=== PATIENT | male | born 2000 | race Caucasian/White ===

== ENCOUNTER 2018-09-01 22:22 | Emergency (ER) | payer BC | END 2018-09-01 23:16 | disposition home or self-care (01) | LOC: ERS 22:22 | DX: K03.81 Cracked tooth (principal); K02.9 Dental caries, unspecified; F41.9 Anxiety disorder, unspecified; F32.9 Major depressive disorder, single episode, unspecified; Z79.899 Other long term (current) drug therapy; Z71.6 Tobacco abuse counseling | CPT/HCPCS: 99406 ==

== ENCOUNTER 2018-09-30 02:20 | Emergency (ER) | payer BC ==
[2018-09-30] MEDS ORDERED: Bupivacaine 0.5% 10 ML VIAL ONE (02:30)
== END 2018-09-30 02:48 | disposition home or self-care (01) ==
LOC: ERS 02:20
DX: K04.7 Periapical abscess without sinus (principal); F41.9 Anxiety disorder, unspecified; F32.9 Major depressive disorder, single episode, unspecified; F17.210 Nicotine dependence, cigarettes, uncomplicated
CPT/HCPCS: 64400; J3490

== ENCOUNTER 2018-10-02 13:21 | Inpatient (IN) | payer BC ==
[~2018-10-02 13:21] MED LIST: ISOVUE-370 76%-LOCM 1 ML ONE
[2018-10-02] MEDS ORDERED: Acetaminophen 650 MG/20.3 ML UDCUP ONE (13:55)
[2018-10-02] MEDS ORDERED: Dexamethasone 4 mg/ml Vial ONE ×2 (13:56→19:55)
[2018-10-02] MEDS ORDERED: Ondansetron PF 4 MG/2 ML Vial ONE (14:26)
[2018-10-02] MEDS ORDERED: Morphine 4 MG/ML VIAL ONE (14:32)
[2018-10-02 14:43] LABS: Hemoglobin 15.3 g/dL (14.0-18.0); Mean Corpuscular HGB CONC 34.2 g/dL (32.0-36.0); Mean Corpuscular Hemoglobin 31.3 pg (25.0-35.0); Mean Corpuscular Volume 91.5 fL (78.0-98.0); Mean Platelet Volume 5.9 fL (7.4-10.4); Platelet Count 293 thou/uL (130-400); Red Blood Cell (RBC) Count 4.89 mill/uL (4.00-5.20); White Blood Cell (WBC) Count 20.1 thou/uL (4.8-10.8)
[2018-10-02 14:57] LABS: Band 4 % (5-11); Lymphocytes 11 % (28-48); MDiff Complete? YES; Monocytes 6 % (0-4); Neutrophil 79 % (31-61); Platelet Morphology Comment Appears Adequate; RBC Morphology Normal
[2018-10-02 15:08] LABS: ALT (SGPT) 13 U/L (8-55); AST (SGOT) 19 U/L (5-34); Albumin 4.5 g/dL (3.5-5.0); Alkaline Phosphatase 76 U/L (Less than 750); Anion Gap 17 mmol/L (10-20); BUN (Urea Nitrogen) 27 mg/dL (8.9-20.6); Bilirubin, Total 0.9 mg/dL (0.2-1.2); Calc. Creatinine Clearance 0 mL/min (70-130); Calcium 9.8 mg/dL (7.8-10.44); Carbon Dioxide 24 mmol/L (22-29); Chloride 98 mmol/L (98-107); Estimated GFR-MDRD 74; Globulin 3.2 g/dL (2.4-3.5); Glucose 104 mg/dL (70-105); Potassium 4.3 mmol/L (3.5-5.1); Protein, Total 7.7 g/dL (6.0-8.3); Sodium 135 mmol/L (136-145)
[2018-10-02] MEDS ORDERED: HYDROmorphone 0.5 MG/0.5 ML SYRINGE ONE ×2 (15:22→19:07)
--- NOTE | 2018-10-02 15:35 | CT ---
CT NECK SOFT TISSUES WITH CONTRAST: Date: 10/02/18 HISTORY: 18-year-old male with sore throat, dental pain, and fever. FINDINGS: There is a complex shaped abscess in the right submandibular space extending anterior to posterior, a nd extending from midline to laterally. There are multiple different loculated components. The main c omponent located inferiorly is oriented along the anteroposterior dimension, and contains a large zaria unt of gas, in addition to the fluid. There is an extension process that travels laterally and superi kai to abut the lingual side of the right mandibular body and angle. Because of the severe edema ass ociated with this, the tissue planes are blurred, and it is difficult to separate the mylohyoid muscl e from the other muscles, that would help in distinguishing the sublingual space from the submandibul ar space. The right lateral component of the abscess abuts the lingual side of the mandible, and cont ains more fluid than gas. There are multiple enlarged right submandibular Level IB reactive lymph nod es. There is diffuse edema throughout the submandibular space and questionably also in the sublingual space, as well as the subcutaneous tissues around the mandible. This edema extends inferiorly to inv olve the anterior cervical spine at midline and bilaterally. The right parapharyngeal space has edema . The mucosal edema mildly effaces the right oropharyngeal airway and the right supraglottic larynx. The glottic larynx and subglottic larynx are widely patent and clear. Lung apices are clear. No defin ite osseous cortical defect is identified involving the mandible. Mucosal edema effaces the right pir iform sinus and preepiglottic space. No retropharyngeal abscess. IMPRESSION: 1. Large, complex-shaped right submandibular abscess, with extensive edema extending into adjacent s paces. 2. 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 3. Otolaryngology consultation is strongly recommended. CODE T. POS: NEDA
[2018-10-02] MEDS ORDERED: Ampicillin/Sulbactam 3 GM in Sodium Chloride 0.9% 100 ML IVPB SCH (16:00)
[2018-10-02] MEDS ORDERED: Morphine 2 MG/ML SYRINGE SLOW IVP PRN (19:56)
[2018-10-02] MEDS ORDERED: Senokot S 8.6-50 MG TAB PO PRN (19:56)
[2018-10-02] MEDS ORDERED: Ondansetron PF 4 MG/2 ML Vial IVP PRN (19:56)
[2018-10-02] MEDS ORDERED: Guaifenesin DM 100-10/5 ML UDCUP PO PRN (19:56)
[2018-10-02] MEDS ORDERED: Acetaminophen 325 MG TAB PO PRN (19:56)
--- NOTE | 2018-10-02 20:34 | HP ---
REASON FOR ADMISSION: Submandibular abscess, multiple caries. HISTORY OF PRESENTING ILLNESS: The patient gives history of having pain and swelling on his right lower half of his face from last three days. This got worse from last evening. He has not been able to open his mouth nor eat. The pain is throbbing in nature, 10/10 in intensity. The patient in fact had come to the emergency room 2 days back and was given clindamycin and Motrin. He was asked to go and see a dentist on the outpatient basis. The patient did not have a financial resources to go see a dentist and finally made it to the emergency room again. The patient had mild fever as well. The patient states he has multiple caries and has not been able to see a dentist for the same. Smokes half pack a day. He also uses marijuana. He denies other substance use. PAST MEDICAL/SURGICAL HISTORY: Anxiety disorder, multiple caries. No prior surgery. CURRENT MEDICATIONS: 1. Clindamycin 450 mg three times daily. 2. Fluoxetine 40 mg daily. 3. Motrin 800 mg q.8 hourly p.r.n. for pain. ALLERGIES: NO KNOWN DRUG ALLERGIES. PERSONAL HISTORY: Smokes half a pack a day. Uses marijuana. Does not abuse other drugs. Drinks on social occasion. FAMILY HISTORY: Mother is in the room. She has history of medullary sponge kidney. Father has coronary artery disease with 3 stents placed. He also has COPD. CODE STATUS: Full. Power of emergency planning and response manager is his mom. REVIEW OF SYSTEMS: CONSTITUTIONAL: Negative for weight loss or gain, ability to conduct usual activities. SKIN: Negative for rash, itching. EYES: Negative for double vision, pain. ENT/MOUTH: Negative for nose bleeding, neck stiffness, pain, tenderness. CARDIOVASCULAR: Negative for palpitations, dyspnea on exertion, orthopnea. RESPIRATORY: Negative for shortness of breath, wheezing, cough, hemoptysis, fever or night sweats. GASTROINTESTINAL: Negative for poor appetite, abdominal pain, heartburn, nausea , vomiting, constipation, or diarrhea. GENITOURINARY: Negative for urgency, frequency, dysuria, nocturia. MUSCULOSKELETAL: Negative for pain, swelling. NEUROLOGIC/PSYCHIATRIC: Negative for anxiety, depression. ALLERGY/IMMUNOLOGIC: Negative for skin rash, bleeding tendency. PHYSICAL EXAMINATION: GENERAL: The patient is a 18-year-old male, who is currently not in any acute distress. VITAL SIGNS: Blood pressure 126/72, pulse 74 per minute, respiratory rate 18 per minute, temperature 100.8 degrees Fahrenheit, and saturating 100% on room air. NECK: Supple. No elevated JVD. EYES: Extraocular muscles intact. Pupils reacting to light. Oral cavity, the patient has edema of the gum with tenderness on the right lower molars. He also has multiple caries on both sides. He has also swelling of his right submandibular area and the lateral neck on the right side. No elevated JVD. CARDIOVASCULAR: S1 and S2 heard. Regular rhythm. RESPIRATORY SYSTEM: Air entry 1+ bilateral. Scattered rhonchi plus no rales or wheezes. ABDOMEN: Soft. Bowel sounds heard. No tenderness, rigidity, or guarding. EXTREMITIES: No peripheral edema or calf tenderness. VASCULAR SYSTEM: Peripheral pulses 2+ bilateral. No ischemic ulcerations or gangrene. CENTRAL NERVOUS SYSTEM: No gross focal deficits noted. The patient is alert, awake, and oriented well. PSYCHIATRIC SYSTEM: The patient's mood is euthymic. No hallucinations or delusions. LABORATORY DATA: CT of soft tissue neck done shows findings of large complex shaped right submandibular abscess with extensive edema extending into adjacent bases. 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 Electrolytes stable. BUN 27, creatinine 1.25, and serum glucose 104. Liver enzymes within normal limits. Albumin is 4.5. White count of 20, hemoglobin and hematocrit 15 and 44, platelet count 293 with 79% neutrophils and 4% bands. CLINICAL IMPRESSION AND PLAN: The patient will be admitted to medical floor for sepsis, submandibular abscess with multiple caries. He will be placed on clindamycin 600 mg IV q.[address] Sander Roe, orofacial maxillary surgeon has been consulted and has seen the patient in the ER. He is planning to take him to OR in the morning. He will be kept n.p.o. after midnight. The patient will be gently hydrated with normal saline at 100 mL/h. He will be on Motrin 400 mg p.o. three times daily along with morphine p.r.n. We will continue his home dose of fluoxetine as before for anxiety disorder. We will continue to closely monitor him on medical floor. He is maintaining his airway with no difficulties at present. Job ID: [id number] [facility]
[2018-10-02] MEDS: Ibuprofen 200 MG TAB PO SCH (21:21)
[2018-10-02] MEDS: Clindamycin/D5W 600 MG in Premix Bag 1 BAG IVPB SCH (21:21)
[2018-10-02] MEDS: Sodium Chloride 0.9% 1,000 ML IV SCH (21:21)
[2018-10-02] MEDS: Famotidine 20 MG TAB PO SCH (21:21)
--- NOTE | 2018-10-03 05:34 | CON ---
DATE OF CONSULTATION: 10/02/2018 CONSULTING PHYSICIAN: ER provider. HISTORY OF PRESENT ILLNESS: This is a 18-year-old male with a longstanding history of dental problems, who reports longstanding pain in the right mandibular posterior teeth region. The patient has presented to the dentist in recent past and was told that he needed multiple root canals and restorations and decided out to proceed with any of this care. Over the course of the past few days, the patient had acute onset of increasing pain and swelling involving the right mandibular region. He presented to the emergency room a couple of days prior and was discharged on antibiotics and returns this time with worsening condition. The patient denies any problems with breathing, but does report some discomfort in swallowing. PAST MEDICAL HISTORY: Positive for depression. HOME MEDICATIONS: Fluoxetine. PAST SURGICAL HISTORY: Negative. ALLERGIES: THE PATIENT HAS NO KNOWN DRUG ALLERGIES. SOCIAL HISTORY: The patient smokes half a pack per day of cigarettes. REVIEW OF SYSTEMS: The patient has had low grade fever. Denies chills. Denies nausea or vomiting, diarrhea or constipation. The patient reports difficulty opening his mouth as wide as he is used to. The patient reports discomfort on swallowing. Denies shortness of breath or difficulty breathing. PHYSICAL EXAMINATION: VITAL SIGNS: Last temperature is 100.3. Otherwise, vital signs within normal limits. GENERAL: The patient is alert and oriented x3 in no apparent distress. HEENT: The patient has large indurated swelling and edema involving the right submandibular space and extending over towards the submental space. The left submandibular space is soft and the inferior border is palpable. The patient has moderate trismus. Palpation of the floor of the mouth is relatively normal with no significant elevation. Tissues are soft and at most mild edema is present. Full dental evaluation is apparently difficult due to the trismus and discomfort, but the patient does have significant secretions throughout the mouth and tooth #30 is somewhat tender to manipulation. It was difficult to fully evaluate, but the oropharynx appears to be relatively normal in appearance. NECK: The trachea is midline. There is felt significant induration and edema of the right submandibular and submental spaces as discussed previously. Otherwise, remainder of the neck appears normal. LUNGS: The patient is breathing without difficulty or any signs of stridor or dyspnea. It should also be noted that the patient appears to be controlling his secretions without difficulty. LABORATORY DATA: The patient had a white blood cell count of 20,000. CT scan of the neck shows a large right submandibular abscess with some loculation and significant gas throughout the area of abscess. The patient also has significant overlying cellulitis of the more superficial tissues of the neck. The airway appears somewhat effaced on the right, but is not significantly deviated. It does not show signs of ASSESSMENT: This is a 18-year-old male with a large complicated right submandibular space and neck abscess secondary to a dentoalveolar infection. PLAN: 1. The patient will be admitted to the hospitalist service for initiation of IV antibiotics. 2. The patient should be kept n.p.o. 3. The patient will be taken to the operating room in short order for removal of an infected teeth in the right mandible and incision and drainage of the right submandibular space and deep neck space abscess under general anesthetic. 4. Final antibiotic choices were made by the hospitalist, but I recommended the continuation of the Unasyn of which the patient already received the dose and to be getting Peridex oral rinses at this time. Pain control by the hospitalist service. I recommend 10 mg IV Decadron at this time as well. Job ID: [id number]
[2018-10-03] MEDS: Clindamycin/D5W 600 MG in Premix Bag 1 BAG IVPB SCH (05:48)
[2018-10-03] MEDS: Sodium Chloride 0.9% 1,000 ML IV SCH ×3 (05:52→19:29)
[2018-10-03 06:34] LABS: Anion Gap 11 mmol/L (10-20); BUN (Urea Nitrogen) 20 mg/dL (8.9-20.6); Calc. Creatinine Clearance 0 mL/min (70-130); Calcium 9.3 mg/dL (7.8-10.44); Carbon Dioxide 25 mmol/L (22-29); Chloride 106 mmol/L (98-107); Estimated GFR-MDRD Greater than 90; Glucose 161 mg/dL (70-105); Potassium 5.1 mmol/L (3.5-5.1); Sodium 137 mmol/L (136-145)
[2018-10-03 06:45] LABS: Band 3 % (5-11); Lymphocytes 2 % (28-48); MDiff Complete? YES; Mean Corpuscular HGB CONC 33.2 g/dL (32.0-36.0); Mean Corpuscular Hemoglobin 31.1 pg (25.0-35.0); Mean Corpuscular Volume 93.5 fL (78.0-98.0); Mean Platelet Volume 6.2 fL (7.4-10.4); Monocytes 1 % (0-4); Neutrophil 94 % (31-61); Platelet Count 233 thou/uL (130-400); Platelet Morphology Comment Appears Adequate; RBC Morphology Normal; White Blood Cell (WBC) Count 15.2 thou/uL (4.8-10.8)
[2018-10-03] MEDS ORDERED: Fentanyl 100 MCG/2 ML VIAL ONE ×4 (08:04→10:44)
[2018-10-03] MEDS ORDERED: Lidocaine 2% Jelly 5 ML TUBE ONE ×2 (08:04→08:16)
[2018-10-03] MEDS ORDERED: Oxymetazoline HCl 0.05% ( 15 ML ) ONE (08:16)
[2018-10-03] MEDS ORDERED: Ophthalmic Irrigation Solution 0 ML ONE (08:28)
[2018-10-03] MEDS ORDERED: Chlorhexidine Gluconate 15 ML UDCUP SSP ONE (08:28)
[2018-10-03] MEDS ORDERED: Hydrocortisone 1% Cream 30 GM TUBE ONE (08:28)
[2018-10-03] MEDS ORDERED: Bacitracin Zinc Ointment 30 gm TUBE ONE (08:28)
[2018-10-03] MEDS ORDERED: Lidocaine 1% w/Epinephrine 1:100K 30 ML VIAL ONE (08:28)
[2018-10-03] MEDS ORDERED: Sodium Chloride 0.9% 10 ML ONE (08:28)
[2018-10-03] MEDS ORDERED: Midazolam HCl 2 mg/2 ml Vial ONE (08:29)
[2018-10-03] MEDS: Ibuprofen 200 MG TAB PO SCH ×3 (09:16→20:19)
[2018-10-03] MEDS: Famotidine 20 MG TAB PO SCH ×2 (09:16→20:19)
[2018-10-03] MEDS: FLUoxetine HCl 20 MG CAP PO SCH (09:16)
[2018-10-03] MEDS: Enoxaparin Sodium 40 MG/0.4 ML SYRINGE SC SCH (09:16)
[2018-10-03] MEDS ORDERED: Meperidine HCl/PF 25 MG/ML VIAL ONE (10:19)
[2018-10-03] MEDS ORDERED: Promethazine HCl 25 MG/ML VIAL IM PRN (10:21)
[2018-10-03] MEDS ORDERED: HYDROmorphone 2 MG/ML VIAL SLOW IVP PRN (10:21)
[2018-10-03] MEDS ORDERED: Promethazine HCl 25 MG/ML VIAL SLOW IVP PRN (10:21)
[2018-10-03] MEDS ORDERED: Ondansetron HCl/PF 4 MG/2 ML Vial IVP PRN (10:21)
[2018-10-03] MEDS: Ampicillin/Sulbactam 1.5 GM in Sodium Chloride 0.9% 100 ML IVPB SCH ×3 (11:32→18:13)
[2018-10-03] MEDS: Morphine 4 MG/ML VIAL IV PRN ×2 (13:21→20:29)
--- NOTE | 2018-10-03 13:59 | PDOC.PN ---
- Subjective Encounter Start Date: 10/03/18 Encounter Start Time: 14:00 Subjective: feels better -: has pain at operated site - Objective Resuscitation Status - Order Detail: 10/02/18 19:53 Resuscitation Status Routine Resuscitation Status: FULL: Full Resuscitation MAR Reviewed: Yes Vital Signs & Weight: Vital Signs (12 hours) Temp Pulse Resp BP Pulse Ox 10/03/18 12:56 47 L 111/62 10/03/18 07:45 98 F 52 L 16 106/56 L 98 10/03/18 04:45 97.4 F L 70 18 102/69 99 Weight Weight 5.82 oz I&O: 10/02/18 10/03/18 10/04/18 06:59 06:59 06:59 Intake Total 1500 Balance 1500 Result Diagrams: 10/04/18 05:50 10/03/18 05:51 Phys Exam - Physical Examination HEENT: PERRLA, sclera anicteric has post op dressing lat neck Respiratory: no wheezing, no rales Cardiovascular: RRR, no significant murmur Gastrointestinal: soft, non-tender, positive bowel sounds Musculoskeletal: no edema, pulses present Neurological: non-focal, moves all 4 limbs Psychiatric: normal affect, A&O x 3 Dx/Plan (1) Sepsis Code(s): A41.9 - SEPSIS, UNSPECIFIED ORGANISM Status: Acute Qualifiers: Sepsis type: sepsis due to unspecified organism Qualified Code(s): A41.9 - Sepsis, unspecified organism Comment: sec to below (2) right submandibular abscess Status: Acute Comment: s/p I&D and removal of tooth#30 (3) multiple dental caries Status: Chronic (4) Anxiety disorder Code(s): F41.9 - ANXIETY DISORDER, UNSPECIFIED Status: Chronic Qualifiers: Anxiety disorder type: generalized anxiety disorder Qualified Code(s): F41.1 - Generalized anxiety disorder - Plan had surgery for his abscess with additional procedures by Dr.Garrett Kam -: on unasyn per dental surgery adv -: morphine prn, motrin tid -: will dc iv fluids in am -: wbc down to 14k this am * . Review of Systems - Medications/Allergies Allergies/Adverse Reactions: Allergies Allergy/AdvReac Type Severity Reaction Status Date / Time No Known Drug Allergies Allergy Verified 10/02/18 15:58 Medications: Current Medications Acetaminophen (Tylenol) 650 mg PO Q4H PRN PRN Reason: Headache/Fever/Mild Pain (1-3) Chlorhexidine Gluconate (Chlorhexidine Gluconate) 15 ml SSP BID [facility] Enoxaparin Sodium (Lovenox) 40 mg SC 0900 [facility] Last Admin: 10/03/18 09:16 Dose: Not Given Famotidine (Pepcid) 20 mg PO BID [facility] Last Admin: 10/03/18 09:16 Dose: Not Given Fluoxetine HCl (Prozac) 40 mg PO DAILY [facility] Last Admin: 10/03/18 09:16 Dose: Not Given Guaifenesin/Dextromethorphan (Robitussin Dm) 15 ml PO Q4H PRN PRN Reason: Cough Sodium Chloride (Normal Saline 0.9%) 1,000 mls @ 100 mls/hr IV .Q10H [facility] Last Admin: 10/03/18 12:53 Dose: 1,000 mls Ampicillin Sodium/Sulbactam (Sodium 1.5 gm/ Sodium Chloride) 100 mls @ 200 mls/ hr IVPB Q6H [facility] Last Admin: 10/03/18 11:32 Dose: 100 mls Ibuprofen (Motrin) 400 mg PO TID [facility] Last Admin: 10/03/18 09:16 Dose: Not Given Morphine Sulfate (Morphine) 2 mg IV Q4H PRN PRN Reason: Chest Pain Last Admin: 10/03/18 13:21 Dose: 2 mg Ondansetron HCl (Zofran) 4 mg IVP Q6H PRN PRN Reason: Nausea/Vomiting Senna/Docusate Sodium (Senokot S) 2 tab PO BID PRN PRN Reason: Constipation
[2018-10-03] MEDS ORDERED: PROPOFOL 200 MG/20 ML VIAL ONE (15:33)
[2018-10-03] MEDS ORDERED: Dexamethasone 20 MG/5 ML VIAL ONE (15:33)
[2018-10-03] MEDS ORDERED: Glycopyrrolate 0.2 MG/ML 5 ML SYRINGE ONE (15:33)
[2018-10-03] MEDS ORDERED: Lidocaine 1% PF 5 ML VIAL ONE (15:33)
[2018-10-03] MEDS ORDERED: Rocuronium Bromide 10 MG/ML (10ML VIAL) ONE (15:33)
[2018-10-03] MEDS ORDERED: Succinylcholine Chloride 20 MG/ML 10 ml SYRINGE FS ONE (15:33)
[2018-10-03] MEDS: traMADol HCl 50 MG TAB PO PRN (16:21)
--- NOTE | 2018-10-03 17:09 | OP ---
DATE OF PROCEDURE: 10/03/2018 PREOPERATIVE DIAGNOSES: 1. Right submandibular space abscess. 2. Infected tooth #30. POSTOPERATIVE DIAGNOSES: 1. Right submandibular space abscess. 2. Infected tooth #30. PROCEDURES PERFORMED: 1. Transcervical incision and drainage of right submandibular space abscess. 2. Removal of tooth #30. INDICATION FOR PROCEDURE: This is a 18-year-old male with longstanding history of tooth disease and pain with recent onset over the last few days of swelling to the right submandibular and perimandibular region with continued pain in the teeth on that side. The patient presented to the emergency room couple of days prior to this day and was at home on antibiotics. The patient returned few days later with worsening signs and symptoms, and I was consulted for evaluation and management. The patient was found to have a large, loculated right submandibular space abscess with significant gas formation and infected tooth #30, and was brought to the operating room this time for surgical management. PROCEDURE IN DETAIL: The patient was identified in the preoperative holding area and all questions were answered. The patient was then transferred to the operating room, transferred to the operating room table in supine position and intubated via an oral intubation procedure by the Anesthesia Service. A surgical time-out was performed at this time and the patient's neck and face were prepped and draped in the sterile manner. The inferior border of the right mandible was marked out and incision site was marked approximately 2.5 cm inferior to the inferior border of the mandible. Lidocaine with epinephrine solution was administered along the proposed incision site and #15 blade was then used to make an incision through the skin. Bovie cautery was used to obtain hemostasis and then the dissection was deepened through layers using combination of blunt and sharp dissection. Hemostats were then used to bluntly dissect it superiorly towards the inferior border of the mandible and this was continued until the abscess cavity was entered. Copious foul purulence was obtained and a culture swab was soaked in the discharge and sent for cultures. The abscess was fully decompressed using combination of hemostats and finger dissection, and the attention was then turned intraorally. A biteblock was placed and a throat pack was also placed. The oral cavity was prepped with Peridex and tooth brush. Tooth #30 was removed with forceps and large periapical granuloma and infected tissue were encountered. The socket of tooth #30 was curetted clean and the socket was irrigated copiously with bacitracin-infused normal saline. Attention was turned back towards the neck and a 7 flat AMANDEEP-drain was cut and inserted into the decompressed abscess cavity and the entire neck wound was copiously irrigated with bacitracin-infused normal saline at this time. A 0.25 inch Ranjan was then doubled over on itself and placed into the submandibular space and it was secured to the skin with a 2-0 Nylon drain stitch. At this time, the oral cavity was irrigated and suctioned free of debris and the throat pack was removed. The oropharynx was suctioned and a gauze pressure pack with an extraoral tail was placed intraorally. The surgical drapes were withdrawn and a dressing was placed over the neck wound at this time. The patient was turned back over to Anesthesia Service for emergence and extubation, which ensued without complication. INTRAVENOUS FLUIDS: Please see anesthetic records for full details. ESTIMATED BLOOD LOSS: 5 mL. FINDINGS: Large foul purulence from the right submandibular space. Prior to initiation of the procedure but after anesthesia was induced tooth #30 had purulence emanating from the gingiva around the tooth and had a large cavitated carious lesions. DRAINS: 0.25 [place] drain to the right submandibular space. SPECIMENS: Purulence from the right submandibular space. IMPLANTS: None. COMPLICATIONS: None. DISPOSITION: The patient tolerated the procedure well and was transferred to the recovery room in good condition. Job ID: [id number]
[2018-10-03] MEDS: Chlorhexidine Gluconate 15 ML UDCUP SSP SCH (20:18)
[2018-10-04] MEDS: Ampicillin/Sulbactam 1.5 GM in Sodium Chloride 0.9% 100 ML IVPB SCH ×5 (00:06→23:27)
[2018-10-04] MEDS: Sodium Chloride 0.9% 1,000 ML IV SCH (01:07)
[2018-10-04 06:08] LABS: #Lymphocytes 1.1 thou/uL (1.20-3.40); #Monocytes 0.7 thou/uL (0.11-0.59); %Basophils 0.1 % (0.0-1.0); %Eosinophils 0.1 % (0.0-10.0); %Neutrophils 86.9 % (31.0-61.0); Hemoglobin 12.5 g/dL (14.0-18.0); Mean Corpuscular HGB CONC 33.3 g/dL (32.0-36.0); Mean Corpuscular Hemoglobin 31.2 pg (25.0-35.0); Mean Corpuscular Volume 93.7 fL (78.0-98.0); Mean Platelet Volume 6.3 fL (7.4-10.4); Platelet Count 247 thou/uL (130-400); RBC Distribution Width 12.1 % (11.5-14.5); Red Blood Cell (RBC) Count 4.01 mill/uL (4.00-5.20); White Blood Cell (WBC) Count 13.8 thou/uL (4.8-10.8)
[2018-10-04] MEDS: Enoxaparin Sodium 40 MG/0.4 ML SYRINGE SC SCH (08:36)
[2018-10-04] MEDS: Ibuprofen 200 MG TAB PO SCH ×3 (08:37→20:23)
[2018-10-04] MEDS: FLUoxetine HCl 20 MG CAP PO SCH (08:38)
[2018-10-04] MEDS: Chlorhexidine Gluconate 15 ML UDCUP SSP SCH ×2 (08:38→20:23)
[2018-10-04] MEDS: Famotidine 20 MG TAB PO SCH ×2 (08:38→20:22)
--- NOTE | 2018-10-04 11:05 | PDOC.PN ---
- Subjective Encounter Start Date: 10/04/18 Encounter Start Time: 07:15 Subjective: pain is better, is able to open mouth and chew better - Objective Resuscitation Status - Order Detail: 10/02/18 19:53 Resuscitation Status Routine Resuscitation Status: FULL: Full Resuscitation MAR Reviewed: Yes Vital Signs & Weight: Vital Signs (12 hours) Temp Pulse Resp BP Pulse Ox 10/04/18 07:52 97.3 F L 45 L 18 106/61 99 10/04/18 04:00 97.3 F L 43 L 16 107/56 L 99 10/04/18 00:00 97.9 F 44 L 18 95/63 98 Weight Weight 5.82 oz I&O: 10/03/18 10/04/18 10/05/18 06:59 06:59 06:59 Intake Total 2380 1700 Balance 2380 1700 Result Diagrams: 10/04/18 05:50 10/03/18 05:51 Phys Exam - Physical Examination HEENT: PERRLA, sclera anicteric Neck: no JVD has dressing over lat neck on right side Respiratory: no wheezing, no rales Cardiovascular: RRR, no significant murmur Gastrointestinal: soft, non-tender, positive bowel sounds Musculoskeletal: no edema, pulses present Neurological: non-focal, moves all 4 limbs Psychiatric: normal affect, A&O x 3 Dx/Plan (1) Sepsis Code(s): A41.9 - SEPSIS, UNSPECIFIED ORGANISM Status: Acute Qualifiers: Sepsis type: sepsis due to unspecified organism Qualified Code(s): A41.9 - Sepsis, unspecified organism Comment: sec to below (2) right submandibular abscess Status: Acute Comment: s/p I&D and removal of tooth#30 (3) multiple dental caries Status: Chronic (4) Anxiety disorder Code(s): F41.9 - ANXIETY DISORDER, UNSPECIFIED Status: Chronic Qualifiers: Anxiety disorder type: generalized anxiety disorder Qualified Code(s): F41.1 - Generalized anxiety disorder - Plan wbc down to 13k from 21k -: on unasyn, motrin, ultram prn -: ensure 1 can tid if he is not eating well -: dc plan per oral surgeon adv -: is recovering well post surgery, encourage po fluid intake * . Review of Systems - Medications/Allergies Allergies/Adverse Reactions: Allergies Allergy/AdvReac Type Severity Reaction Status Date / Time No Known Drug Allergies Allergy Verified 10/02/18 15:58 Medications: Current Medications Acetaminophen (Tylenol) 650 mg PO Q4H PRN PRN Reason: Headache/Fever/Mild Pain (1-3) Last Admin: 10/03/18 18:13 Dose: 650 mg Chlorhexidine Gluconate (Chlorhexidine Gluconate) 15 ml SSP BID [facility] Last Admin: 10/04/18 08:38 Dose: 15 ml Enoxaparin Sodium (Lovenox) 40 mg SC 0900 [facility] Last Admin: 10/04/18 08:36 Dose: 40 mg Famotidine (Pepcid) 20 mg PO BID [facility] Last Admin: 10/04/18 08:38 Dose: 20 mg Fluoxetine HCl (Prozac) 40 mg PO DAILY [facility] Last Admin: 10/04/18 08:38 Dose: 40 mg Guaifenesin/Dextromethorphan (Robitussin Dm) 15 ml PO Q4H PRN PRN Reason: Cough Ampicillin Sodium/Sulbactam (Sodium 1.5 gm/ Sodium Chloride) 100 mls @ 200 mls/ hr IVPB Q6HR [facility] Last Admin: 10/04/18 05:23 Dose: 100 mls Ibuprofen (Motrin) 400 mg PO TID [facility] Last Admin: 10/04/18 08:37 Dose: 400 mg Morphine Sulfate (Morphine) 2 mg IV Q4H PRN PRN Reason: Chest Pain Last Admin: 10/03/18 20:29 Dose: 2 mg Ondansetron HCl (Zofran) 4 mg IVP Q6H PRN PRN Reason: Nausea/Vomiting Senna/Docusate Sodium (Senokot S) 2 tab PO BID PRN PRN Reason: Constipation Tramadol HCl (Ultram) 50 mg PO Q6H PRN PRN Reason: Moderate Pain (4-6) Last Admin: 10/03/18 16:21 Dose: 50 mg
[2018-10-04] MEDS: traMADol HCl 50 MG TAB PO PRN (20:24)
[2018-10-05] MEDS: Ampicillin/Sulbactam 1.5 GM in Sodium Chloride 0.9% 100 ML IVPB SCH ×2 (05:45→13:43)
[2018-10-05 06:09] LABS: #Eosinphils 0.1 thou/uL (0.0-0.7); #Lymphocytes 2.2 thou/uL (1.20-3.40); #Monocytes 0.6 thou/uL (0.11-0.59); #Neutrophils 4.5 thou/uL (1.40-6.50); %Basophils 0.3 % (0.0-1.0); %Eosinophils 0.9 % (0.0-10.0); %Lymphocytes 29.4 % (28.0-48.0); %Monocytes 8.7 % (0.0-4.0); %Neutrophils 60.7 % (31.0-61.0); Hemoglobin 12.3 g/dL (14.0-18.0); Mean Corpuscular HGB CONC 33.2 g/dL (32.0-36.0); Mean Corpuscular Hemoglobin 31.3 pg (25.0-35.0); Mean Corpuscular Volume 94.3 fL (78.0-98.0); Platelet Count 276 thou/uL (130-400); RBC Distribution Width 12.1 % (11.5-14.5); Red Blood Cell (RBC) Count 3.93 mill/uL (4.00-5.20); White Blood Cell (WBC) Count 7.4 thou/uL (4.8-10.8)
[2018-10-05] MEDS: Chlorhexidine Gluconate 15 ML UDCUP SSP SCH (09:05)
[2018-10-05] MEDS: Enoxaparin Sodium 40 MG/0.4 ML SYRINGE SC SCH (09:05)
[2018-10-05] MEDS: FLUoxetine HCl 20 MG CAP PO SCH (09:06)
[2018-10-05] MEDS: Ibuprofen 200 MG TAB PO SCH (09:06)
[2018-10-05] MEDS: Famotidine 20 MG TAB PO SCH (09:06)
[2018-10-05 11:56] VITALS: BP 120/65; TEMP 97.6
--- NOTE | 2018-10-05 14:37 | PDOC.PN ---
- Subjective Encounter Start Date: 10/05/18 Encounter Start Time: 08:25 Subjective: no trouble chewing or opening mouth -: pain is better - Objective Resuscitation Status - Order Detail: 10/02/18 19:53 Resuscitation Status Routine Resuscitation Status: FULL: Full Resuscitation MAR Reviewed: Yes Vital Signs & Weight: Vital Signs (12 hours) Temp Pulse Resp BP Pulse Ox 10/05/18 11:20 97.6 F 47 L 22 H 120/65 99 10/05/18 08:00 97.5 F L 47 L 16 111/64 97 10/05/18 03:43 97.3 F L 53 L 16 101/47 L 99 Weight Weight 5.82 oz I&O: 10/04/18 10/05/18 10/06/18 06:59 06:59 06:59 Intake Total 2380 3900 Balance 2380 3900 Result Diagrams: 10/05/18 05:50 10/03/18 05:51 Phys Exam - Physical Examination HEENT: PERRLA, sclera anicteric Neck: no JVD has drain with dressing in the submand area Respiratory: no wheezing, no rales Cardiovascular: RRR, no significant murmur Gastrointestinal: soft, non-tender, positive bowel sounds Musculoskeletal: no edema, pulses present Neurological: non-focal, moves all 4 limbs Psychiatric: normal affect, A&O x 3 Dx/Plan (1) Sepsis Code(s): A41.9 - SEPSIS, UNSPECIFIED ORGANISM Status: Acute Qualifiers: Sepsis type: sepsis due to unspecified organism Qualified Code(s): A41.9 - Sepsis, unspecified organism Comment: sec to below (2) right submandibular abscess Status: Acute Comment: s/p I&D and removal of tooth#30 (3) multiple dental caries Status: Chronic (4) Anxiety disorder Code(s): F41.9 - ANXIETY DISORDER, UNSPECIFIED Status: Chronic Qualifiers: Anxiety disorder type: generalized anxiety disorder Qualified Code(s): F41.1 - Generalized anxiety disorder - Plan hemostable -: normal wbc this am -: has been cleared by for dc -: will be on augmentin and flagyl per OMFS * .
--- NOTE | 2018-10-06 14:34 | DIS ---
DATE OF ADMISSION: 10/02/2018 DATE OF DISCHARGE: 10/05/2018 DISCHARGE DISPOSITION: Home. PRIMARY DISCHARGE DIAGNOSES: 1. Right submandibular abscess due to dental caries, status post incision and drainage and removal of tooth #30. 2. Multiple dental caries. 3. Sepsis secondary to above. 4. Anxiety disorder. 5. Attention deficit disorder. PROCEDURES DONE DURING HOSPITALIZATION: The patient had soft tissue neck CAT scan done on the day of admission with contrast, which showed large complex right submandibular abscess with extensive edema extending to adjacent spaces. The patient had transcervical incision and drainage of right submandibular space abscess with removal of tooth #[address] Sander Roe on 10/03/2018. LABORATORY DATA: Cultures grew Prevotella and Peptostreptococcus micros. Had a white count of 20 on the day of admission with discharge number of 7.4. DISCHARGE MEDICATIONS: 1. Augmentin 875 mg p.o. twice daily for 10 days. 2. Flagyl 500 mg p.o. twice daily for 10 days. 3. Ultram p.r.n. for pain. 4. Motrin p.r.n. for pain. 5. Chlorhexidine mouthwash. 6. Prozac 40 mg p.o. daily for anxiety. ALLERGIES: NO KNOWN DRUG ALLERGIES. DISCHARGE PLAN: The patient to follow up with Dr. Sander Roe as advised and primary care physician in one week. BRIEF COURSE DURING HOSPITALIZATION: The patient initially came to ER with complaints of swelling in the right lower half of his face with pain and tenderness. He also had multiple caries. He had a soft-tissue neck CAT scan with contrast done, which showed submandibular abscess. The patient was evaluated by Dr. Sander Roe for orofacial surgery. He was taken to OR on the and has had incision and drainage of the abscess with removal of tooth #30. Postprocedure, the patient has been able to open his mouth and chew. He is on solid food prior to discharge. His pain is well controlled on current medications. He will follow up with Dr. Roe as advised. He has been cleared for discharge by Dr. Sander Roe. Please see a [id number] documentation for the day of discharge on [facility]. Job ID: [id number] [facility]
== END 2018-10-05 14:30 | disposition home or self-care (01) | DRG 854 ==
LOC: ERS 13:21 → SURG A 20:01
PROVIDERS: ADMIT Internal Medicine; ATTEND Internal Medicine
PROC: 0J910ZZ Drainage of Face Subcutaneous Tissue and Fascia, Open Approach (ICD-10-PCS; principal; 2018-10-03)
PROC: 0CDXXZ0 Extraction of Lower Tooth, Single, External Approach (ICD-10-PCS; 2018-10-03)
DX: A41.9 Sepsis, unspecified organism (principal); K12.2 Cellulitis and abscess of mouth; F41.1 Generalized anxiety disorder; F17.210 Nicotine dependence, cigarettes, uncomplicated; K04.7 Periapical abscess without sinus; K02.9 Dental caries, unspecified; Z79.2 Long term (current) use of antibiotics
CPT/HCPCS: 36415; 64400; 70491; 80048; 80053; 85025; 87070; 87076; 87205; 96361; 96365; 96366; 96367; 96375; J0131; J0295; J1100; J1170; J1650; J2001; J2175; J2250; J2270; J2405; J2704; J3010; J3490; J7050